=== PATIENT | female | born 1950 | race Caucasian/White ===

== ENCOUNTER 2023-01-21 07:45 | Day surgery (SDC) | payer MEDICARE, MEDICAID ==
[~2023-01-21 07:45] MED LIST: Cefuroxime 10 MG/ML SYRINGE EYELF SCH; Lidocaine 1% PF 2 ML SDV INJECT SCH; Pilocarpine 4% Ophth Soln 15 ML Bot EYELF SCH
[2023-01-21] MEDS: Polymyxin B/Trimethoprim 10 ML Bottle EYELF SCH ×3 (09:12→10:48)
[2023-01-21] MEDS: Brimonidine 0.2% Ophth Soln 5 ML Bottle EYELF SCH ×3 (09:17→10:48)
[2023-01-21] MEDS: Phenylephrine 2.5% Ophth Soln 2 ML Bot EYELF SCH ×5 (09:22→10:30)
[2023-01-21] MEDS: Tropicamide 1% Ophth Soln 15 ML Bottle EYELF SCH ×4 (09:35→10:18)
[2023-01-21] MEDS: Tetracaine HCl/PF 0.5% 4 ML Bottle EYEBOTH SCH ×4 (10:27→10:36)
[2023-01-21 11:09] VITALS: BP 167/57; PULSE 52
== END 2023-01-21 11:02 | disposition home or self-care (01) ==
LOC: JD.SDS 07:45
PROVIDERS: ATTEND Ophthalmology
DX: E11.36 Type 2 diabetes mellitus with diabetic cataract (principal); H25.813 Combined forms of age-related cataract, bilateral; H21.81 Floppy iris syndrome; H21.42 Pupillary membranes, left eye; F32.A Depression, unspecified; I11.9 Hypertensive heart disease without heart failure; E78.00 Pure hypercholesterolemia, unspecified; K21.9 Gastro-esophageal reflux disease without esophagitis; M10.9 Gout, unspecified; Z79.4 Long term (current) use of insulin; Z98.890 Other specified postprocedural states; Z87.891 Personal history of nicotine dependence; Z88.0 Allergy status to penicillin; Z88.4 Allergy status to anesthetic agent; Z79.899 Other long term (current) drug therapy; Z79.84 Long term (current) use of oral hypoglycemic drugs
CPT/HCPCS: A9270-GY; J0697; J3490; V2788-GY

== ENCOUNTER 2023-02-18 07:00 | Day surgery (SDC) | payer MEDICARE, MEDICAID ==
[~2023-02-18 07:00] MED LIST changes: -Cefuroxime 10 MG/ML SYRINGE EYELF SCH; +Cefuroxime 10 MG/ML SYRINGE EYERT SCH; -Pilocarpine 4% Ophth Soln 15 ML Bot EYELF SCH; +Pilocarpine 4% Ophth Soln 15 ML Bot EYERT SCH
[2023-02-18] MEDS: Polymyxin B/Trimethoprim 10 ML Bottle EYERT SCH ×3 (07:03→08:36)
[2023-02-18] MEDS: Brimonidine 0.2% Ophth Soln 5 ML Bottle EYERT SCH ×3 (07:10→08:36)
[2023-02-18] MEDS: Phenylephrine 2.5% Ophth Soln 2 ML Bot EYERT SCH ×5 (07:15→08:13)
[2023-02-18] MEDS: Tropicamide 1% Ophth Soln 15 ML Bottle EYERT SCH ×4 (07:20→08:00)
[2023-02-18] MEDS ORDERED: Ondansetron 4 MG/2 ML SDV IVPUSH PRN (07:21)
[2023-02-18] MEDS: Tetracaine HCl/PF 0.5% 4 ML Bottle EYEBOTH SCH ×4 (08:04→08:20)
[2023-02-18 08:59] VITALS: BP 160/63; PULSE 64
== END 2023-02-18 08:56 | disposition home or self-care (01) ==
LOC: JD.SDS 07:00
PROVIDERS: ATTEND Ophthalmology
DX: E11.36 Type 2 diabetes mellitus with diabetic cataract (principal); H25.811 Combined forms of age-related cataract, right eye; H52.31 Anisometropia; H21.81 Floppy iris syndrome; H21.41 Pupillary membranes, right eye; F32.A Depression, unspecified; E78.00 Pure hypercholesterolemia, unspecified; I11.9 Hypertensive heart disease without heart failure; K21.9 Gastro-esophageal reflux disease without esophagitis; M10.9 Gout, unspecified; F17.200 Nicotine dependence, unspecified, uncomplicated; Z98.890 Other specified postprocedural states; Z79.899 Other long term (current) drug therapy; Z79.84 Long term (current) use of oral hypoglycemic drugs; Z88.4 Allergy status to anesthetic agent; Z96.1 Presence of intraocular lens
CPT/HCPCS: 66982; A9270; J0697; J3490

== ENCOUNTER 2024-03-15 15:52 | Emergency (ER) | payer MEDICARE, MEDICAID ==
[2024-03-15 16:45] VITALS: PULSE 81
[2024-03-15] MEDS: Aluminum Hydroxide/Magnesium Hydroxide/Simethicone Susp 30 ML Cup PO ONE (16:54)
[2024-03-15] MEDS: Pantoprazole 40 MG Tab.CR PO ONE (20:19)
[2024-03-15] MEDS: Acetaminophen 325 MG Tab PO ONE (20:19)
[2024-03-15 21:30] VITALS: BP 164/79
== END 2024-03-15 21:19 | disposition home or self-care (01) ==
LOC: JD.ED 15:52
DX: M54.2 Cervicalgia (principal); M54.6 Pain in thoracic spine; M54.50 Low back pain, unspecified; I10 Essential (primary) hypertension; Z88.0 Allergy status to penicillin; Z88.1 Allergy status to other antibiotic agents; Z79.84 Long term (current) use of oral hypoglycemic drugs; Z79.899 Other long term (current) drug therapy; W01.0XXA Fall on same level from slipping, tripping and stumbling without subsequent striking against object, initial encounter
CPT/HCPCS: 70450; 72125; 72128; 72131; 99284; A9270; 99283